=== PATIENT | male | born 1985 | race Caucasian/White ===

== ENCOUNTER 2017-08-29 14:14 | Emergency (ER) | payer OTHER ==
[2017-08-29 16:32] LABS: BASOPHIL % 0.3 % (0-2); PLATELET COUNT 209 x10^3mcL (130-400); RED CELL DISTRIBUTION WIDTH 13.4 % (11.5-14.5)
[2017-08-29 16:46] LABS: CALCIUM 9.6 mg/dL (8.5-10.1); CARBON DIOXIDE 30.2 mmol/L (21-32); CHLORIDE SERUM 101 mmol/L (98-107); CREATININE SERUM 0.8 mg/dL (0.7-1.3); GFR1 > 60 mL/min; GLUCOSE SERUM 104 mg/dL (74-106); POTASSIUM SERUM 4.1 mmol/L (3.5-5.1); SODIUM SERUM 141 mmol/L (136-145)
[2017-08-29 16:48] VITALS: BP 118/71
[2017-08-29 16:51] LABS: ALBUMIN 4.4 g/dL (3.4-5.0); ALKALINE PHOSPHATASE 163 U/L (46-116); ALT/SGPT 32 U/L (16-63); AST/SGOT 29 U/L (15-37); BILIRUBIN TOTAL 0.37 mg/dL (0.20-1.00); TOTAL PROTEIN, SERUM 7.8 g/dL (6.4-8.2)
[2017-09-02] MEDS ORDERED: KEPPRA500 MG PO (21:55)
[2017-09-02] MEDS ORDERED: CELEXA10 MG (21:56)
[2017-09-02] MEDS ORDERED: BUS10 PO (21:56)
[2017-09-02] MEDS ORDERED: DILANTIN100 MG PO (21:56)
== END 2017-08-29 19:12 | disposition home or self-care (01) ==
LOC: ED 14:14
PROVIDERS: Emergency Medicine
DX: G40.909 Epilepsy, unspecified, not intractable, without status epilepticus (principal); Z88.0 Allergy status to penicillin
CPT/HCPCS: J1885; J1953; J3490; J7030

== ENCOUNTER 2017-11-18 09:44 | Emergency (ER) | payer OTHER ==
[~2017-11-18] VITALS: Ht 165.1 cm; Wt 77.1 kg
[~2017-11-18 09:44] MED LIST: BUS10 PO; CELEXA10 MG; DILANTIN100 MG PO; KEPPRA500 MG PO
[2017-11-18 09:50] VITALS: Ht 165.1 cm; Wt 77.1 kg
[2017-11-18 12:34] VITALS: BP 107/63
== END 2017-11-18 12:35 | disposition home or self-care (01) ==
LOC: ED 09:44
DX: R56.9 Unspecified convulsions (principal); Z88.0 Allergy status to penicillin; Z91.041 Radiographic dye allergy status
CPT/HCPCS: J1165; J3490